=== PATIENT | female | born 1960 | race Caucasian/White ===

== ENCOUNTER → 2017-11-10 10:35 | Emergency (ER) | payer BC ==
[~2017-11-10 10:35] MED LIST: Tetan/Diph/Pertus SYR(Tdap)* 0.5 ML SYR(BOOSTRIX) use SYR IM ONE
--- NOTE | 2017-11-10 11:02 | ED ---
Skin Complaint - HPI Summary HPI Summary: Patient is a 57 y/o F w c/o facial scratch onsetting an hour ago. She states that her [place] scratched her above her upper lip. Patient is concerned she needs stitches. Area is noted to be sore. Fever is denied. Nothing is reported to aggravate/alleviate Sx. She does not remember date of last tetanus shot. PMHx of back pain. She states she is a former smoker, quit two years ago, denies drug use. Home medications and allergies reviewed. - History of Current Complaint Chief Complaint: EDAnimalBite Time Seen by Provider: 11/10/17 10:43 Stated Complaint: LAC ABOVE LIP FROM DOG Hx Obtained From: Patient Onset/Duration: Started Hours Ago - onset 1 hour ago Skin Exposure Onset/Duration: Hours Ago Timing: Constant Skin Location: Discrete, Face - scratch is above upper lip Character: Pain - sore Aggravating Symptom(s): Nothing Alleviating Symptom(s): Nothing - Allergy/Home Medications Allergies/Adverse Reactions: Allergies Allergy/AdvReac Type Severity Reaction Status Date / Time MS Penicillin V Allergy Intermediate Shortness Verified 03/09/15 13:48 [From Penicillin VK of Breath Potassium] MS Sulfa Antibiotics Allergy Intermediate Difficulty Verified 03/09/15 13:48 [Sulfa Antibiotics] Breathing MS Acetaminophen Allergy Unknown Unknown Verified 03/09/15 13:48 [From Darvocet-N] Reaction Details MS Codeine [Codeine] Allergy Unknown Unknown Verified 03/09/15 13:48 Reaction Details MS Propoxyphene Allergy Unknown Unknown Verified 03/09/15 13:48 [From Darvocet-N] Reaction Details PMH/Surg Hx/FS Hx/Imm Hx Musculoskeletal History: Denies: Hx Osteoporosis Sensory History: Denies: Hx Legally Blind, Hx Deafness Opthamlomology History: Denies: Hx Legally Blind - Cancer History Hx Chemotherapy: No Hx Radiation Therapy: No - Immunization History Date of Tetanus Vaccine: ukn Date of Influenza Vaccine: ukn - Family History Known Family History: Negative: Blood Disorder - Social History Alcohol Use: Occasionally Substance Use Type: Reports: None Smoking Status (MU): Former Smoker - 2 years Review of Systems Negative: Fever Positive: Other - scratch above upper lip from dog; soreness at area All Other Systems Reviewed And Are Negative: Yes Physical Exam - Summary Physical Exam Summary: Appearance: Well appearing, no pain distress Skin: warm, dry, reflects adequate perfusion; 2 cm superficial scratch with avulsion of tissue. Head/face: normal Eyes: EOMI, KIERA ENT: normal Neck: supple, non-tender Respiratory: CTA, breath sounds present Cardiovascular: RRR, pulses symmetrical Abdomen: non-tender, soft Bowel Sounds: present Musculoskeletal: normal, strength/ROM intact Neuro: normal, sensory motor intact, A&Ox3 Triage Information Reviewed: Yes Vital Signs Reviewed: Yes Course/Dx - Course Course Of Treatment: Show a superficial scratch from her dog. There is no laceration requiring up repair. The skin is simply peeled up. This was removed bluntly with my fingers. She was then cleaned out with soap and water and dressed with a Tegaderm and bacitracin. Tetanus was updated. - Diagnoses Provider Diagnoses: Animal scratch Discharge - Sign-Out/Discharge Documenting (check all that apply): Patient Departure - discharge - Discharge Plan Condition: Stable Disposition: HOME Referrals: Pascual Patiño MD [Primary Care Provider] - Additional Instructions: [employer] was down at the time patient was present in the ED. Patient was given paper discharge instructions. - Billing Disposition and Condition Condition: STABLE Disposition: Home - Attestation Statements Document Initiated by Scribe: Yes Documenting Scribe: Dharmesh Fernandes Provider For Whom Taran is Documenting (Include Credential): Marilynn Oneill MD Scribe Attestation: Dharmesh Perkins, scribed for Marilynn Oneill MD on 11/10/17 at 1726. Scribe Documentation Reviewed: Yes Provider Attestation: The documentation as recorded by the Dharmseh solano accurately reflects the service I personally performed and the decisions made by me, Marilynn Oneill MD
== END | disposition home or self-care (01) ==
LOC: ED 10:35
DX: S00.511A Abrasion of lip, initial encounter (principal); W54.8XXA Other contact with dog, initial encounter; Y92.9 Unspecified place or not applicable; Z87.891 Personal history of nicotine dependence
CPT/HCPCS: 90471; 90715; 99282